=== PATIENT | male | born 1980 | race Caucasian/White ===

== ENCOUNTER 2019-08-23 11:25 | Emergency (ER) | payer OTHER ==
[~2019-08-23] VITALS: Ht 195.6 cm; Wt 109.1 kg
[2019-08-23 11:30] VITALS: TEMP 99.1
[2019-08-23] MEDS ORDERED: DEPAKOTE ER 25250 MG PO ×2 (11:46)
[2019-08-23] MEDS ORDERED: PROZAC 20MG20 MG PO (11:47)
[2019-08-23] MEDS ORDERED: ATARAX 25MG25 MG/TAB PO (11:47)
[2019-08-23] MEDS ORDERED: MINIPRESS 1M1 MG/CAP PO (11:48)
[2019-08-23] MEDS ORDERED: PROTONIX 40MG T40 MG PO (11:48)
[2019-08-23] MEDS ORDERED: LIPITOR 80MG80 MG (11:49)
[2019-08-23 12:01] LABS: HEMATOCRIT 45.5 % (42.0-52.0); HEMOGLOBIN 15.6 g/dl (13.5-18.0); MEAN CELL VOLUME 87 fl (80.0-100.0); MEAN CORPUSCULAR HEMOGLOBIN 30 pg (27.0-31.0); MEAN CORPUSCULAR HGB CONC 34 g/dl (33.0-37.0); MEAN PLATELET VOLUME 9.6 fl (7.4-10.4); PLATELET COUNT 263 K/mm3 (130-400); RED BLOOD COUNT 5.23 M/mm3 (4.20-5.60); REDCELL DISTRIBUTION WIDTH-CV 12.7 % (11.5-14.5)
[2019-08-23 12:17] LABS: COLLECTION METHOD CLEAN CATCH
[2019-08-23 12:19] LABS: ALBUMIN 4.3 gm/dL (3.5-5.0); BILIRUBIN,TOTAL 0.5 mg/dL (0.0-1.0); C-REACTIVE PROTEIN 2.3 mg/dL (0.0-0.9); CALCIUM 9.2 mg/dL (8.4-10.2); POTASSIUM 3.9 mmol/L (3.4-5.0); TOTAL PROTEIN 7.5 gm/dL (6.4-8.2)
[2019-08-23 12:23] LABS: MUCOUS Present /lpf; PH 6 (5-8); SQUAMOUS EPITHELIAL None Seen /hpf; URINE APPEARANCE Hazy; URINE BACTERIA Rare /hpf; URINE BILIRUBIN Negative (NEGATIVE); URINE BLOOD Negative (NEGATIVE); URINE COLOR Yellow; URINE GLUCOSE Negative (NEGATIVE); URINE KETONE Trace (NEGATIVE); URINE LEUKOCYTE ESTERASE Negative (NEGATIVE); URINE NITRATE Negative (NEGATIVE); URINE PROTEIN(semi-quant) 1+ (NEGATIVE); URINE RBC 0-2 /hpf; URINE UROBILINOGEN Negative (NEGATIVE)
[2019-08-23 12:47] LABS: BAND 8 % (0-10); EOSINOPHIL 1 % (0-4); LYMPHOCYTE 47 % (20.0-51.0); NEUTROPHILS 30 % (42.0-75.2); PLATELET ESTIMATE NORMAL (NORMAL)
[2019-08-23] MEDS ORDERED: VANCOCIN H125 MG/CAP PO (15:30)
[2019-08-23] MEDS ORDERED: ZITHROMAX500 M2 PO (15:30)
[2019-08-23 15:33] LABS: HIV 1/2 Antibodies Non-Reactive; HIV-1p24 Antigen Non-Reactive
[2019-08-23 15:52] VITALS: BP 129/79; PULSE 82
== END 2019-08-23 15:52 | disposition home or self-care (01) ==
LOC: COL.ER 11:25
PROVIDERS: Emergency Medicine
DX: A04.72 Enterocolitis due to Clostridium difficile, not specified as recurrent (principal); F43.10 Post-traumatic stress disorder, unspecified; F41.9 Anxiety disorder, unspecified; Z21 Asymptomatic human immunodeficiency virus [HIV] infection status
CPT/HCPCS: J7030; Q9967

== ENCOUNTER → 2023-09-10 | Emergency (ER) | payer OTHER ==
[~2023-09-10] VITALS: Ht 193 cm; Wt 104.5 kg
[~2023-09-10] MED LIST: ATARAX 25MG25 MG/TAB PO; DEPAKOTE ER 25250 MG PO; Home HYDROcodone/Acetaminophen 5/325 MG #4 TABS/PACK PO ONE; LIPITOR 80MG80 MG; MINIPRESS 1M1 MG/CAP PO; PROTONIX 40MG T40 MG PO; PROZAC 20MG20 MG PO; VANCOCIN H125 MG/CAP PO; ZITHROMAX500 M2 PO
[2023-09-10 15:45] VITALS: BP 155/96; PULSE 95; TEMP 98.4
== END ==
LOC: COL.ER 08:42
DX: S62.502A Fracture of unspecified phalanx of left thumb, initial encounter for closed fracture (principal); W22.8XXA Striking against or struck by other objects, initial encounter